=== PATIENT | female | born 1965 | race Caucasian/White ===

== ENCOUNTER 2024-05-16 10:12 | Outpatient (REF) | payer OTHER, SELFPAY ==
--- NOTE | ~2024-05-16 | XR_ITS ---
EXAMINATION: XR KNEE, LEFT CLINICAL INFORMATION: M25.562 - Pain in left knee COMPARISON: None available. TECHNIQUE: Three views of the left knee. FINDINGS: Minimal marginal osteophytes about the medial lateral compartments without joint space narrowing. Patellofemoral compartment unremarkable. No effusion. XR/XR knee LT 3V IMPRESSION: Minimal arthrosis of the left knee Electronically signed by: Saad Uribe MD 05/21/2024 10:23 PM YONG
== END 2024-05-16 10:13 | disposition home or self-care (01) ==
LOC: HO.HOSX 10:12
PROVIDERS: Visit Provider Orthopaedic Surgery
DX: M25.562 Pain in left knee (principal)
CPT/HCPCS: 73562

== ENCOUNTER 2024-05-16 13:57 | Outpatient (AMB) | payer OTHER, SELFPAY ==
--- NOTE | 2024-05-16 14:08 | A.OFFVIS_ITS ---
Vital Signs 05/16/24 14:12 Height 5 ft Weight 132 lb BMI 25.8 Intake Visit Reasons: Left knee pain and giving way Intake Note: Clarisa is a 58 year old female who presents with complaints of progressively worsening left knee pain and giving way. The patient describes her pain as sharp in nature. The patient 1st injured her left knee when she twisted it while dancing at her daughter's wedding. She then reaggravated her left knee several months ago while moving boxes. She states that her left knee will give out several times per day. She has failed the last 6 weeks of conservative treatment which has consisted of physical therapy exercises, topical creams, Tylenol and anti-inflammatory medicines. Allergies No Known Allergies Allergy (Verified 05/16/24 14:13) Medication List - Last Reconciled 05/16/24 by Pavan Calle MD gabapentin 300 mg PO BEDTIME hydrochlorothiazide 25 mg PO DAILY lorazepam 1 mg PO DAILY PRN verapamil ER 240 mg PO DAILY PFSH Social History (Updated 05/16/24 @ 14:14 by ANGEL Fink) Alcohol intake: current Alcohol intake frequency: a few times a week Patient Tobacco Use Status: Never used Tobacco Current occupational status: unemployed Physical Exam Vital Signs: BMI result Body Mass Index 25.8 Const Other: Well-nourished well-developed very friendly female awake alert and oriented x3 in no acute distress Extrem Other: Bilateral lower extremity examination shows good capillary refill, no skin les ions noted, normal sensation light touch Left knee examination shows a minimal effusion, minimal crepitus with range of motion, tenderness along her medial joint line, positive Maryan's test, no ins tability Results Reviewed Results Reviewed: Standing full weight-bearing x-rays of the patient's left knee show mild diffuse joint space narrowing, no acute bony abnormalities Assessment & Plan Assessment & Plan (1) Tear of medial meniscus of left knee: Code(s): S83.242A - Other tear of medial meniscus, current injury, left knee, initial encounter Category: Medical Plan Ms. Aguilar presents with progressively worsening left knee pain and mechanical symptoms most likely due to a medial meniscus tear. Thus, I will send the patient for an MRI of her left knee for further evaluation. I will see her back once the MRI is completed to discuss the findings and treatment options. Feel free to call me at any time should questions regarding her orthopedic management arise. Thank you very much for asking me to see this very friendly patient. I spent 21 minutes in reviewing the patient's records and imaging studies, seeing the patient and documenting in the medical record. Orders: Orders XR knee LT 3V 05/16/24 M25.562 - Pain in left knee MR knee LT wo con Today S83.242A - Other tear of medial meniscus, current injury, left knee, initial encounter Coding Level of Care Code New Pt Level 3 (33761) Complex EM visit Add On G2211 Diagnoses Tear of medial meniscus of left knee S83.242A
[2024-05-16 14:12] VITALS: BMI 25.8
== END 2024-05-16 14:29 | disposition home or self-care (01) ==
PROVIDERS: PCP Nurse Practitioner Family; Visit Provider Orthopaedic Surgery
DX: S83.242A Other tear of medial meniscus, current injury, left knee, initial encounter (principal)
CPT/HCPCS: 99203